=== PATIENT | female | born 1975 | race Caucasian/White ===

== ENCOUNTER 2017-10-13 07:44 | Emergency (ER) | payer BC, OTHER ==
[2017-10-13 08:07] VITALS: BP 125/88
--- NOTE | 2017-10-13 08:55 | UC ---
Respiratory Complaint HPI - HPI Summary HPI Summary: 42 F with cough. pruritic rash on bilat arms, scratchy throat. cold sx, states she has "mucous". Per pt (+) exposure to both flu and strep. No fever. Not . Not immunocompromised. mild scratchy throat. no SOB. No n/v/d [ End ] - History of Current Complaint Chief Complaint: UCGeneralIllness Stated Complaint: ST/COUGH Time Seen by Provider: 10/13/17 08:50 Hx Obtained From: Patient Hx Last Menstrual Period: 12/26/13 Onset/Duration: Sudden Onset Timing: Constant Severity Initially: Mild Severity Currently: Mild Pain Intensity: 0 - Allergies/Home Medications Allergies/Adverse Reactions: Allergies Allergy/AdvReac Type Severity Reaction Status Date / Time MS Carisoprodol [From Soma] Allergy Hives Verified 10/13/17 08:07 MS Clarithromycin Allergy Hives Verified 10/13/17 08:07 [From Biaxin] MS Escitalopram Allergy Hives Verified 10/13/17 08:07 [From Lexapro] PMH/Surg Hx/FS Hx/Imm Hx Previously Healthy: Yes - Surgical History Surgical History: Yes Surgery Procedure, Year, and Place: hysterectomy - Family History Known Family History: Positive: None - Social History Occupation: Employed Full-time - kindergarten Alcohol Use: None Substance Use Type: None Smoking Status (MU): Never Smoked Tobacco - Immunization History Most Recent Tetanus Shot: unknown Review of Systems Constitutional: Fatigue ENT: Sore Throat, Nasal Discharge, Sinus Congestion Respiratory: Cough Is Patient Immunocompromised?: No All Other Systems Reviewed And Are Negative: Yes Physical Exam Triage Information Reviewed: Yes Appearance: Well-Appearing, No Pain Distress, Well-Nourished Vital Signs: Initial Vital Signs Temp 98.8 F 10/13/17 08:02 Pulse 87 10/13/17 08:02 Resp 18 10/13/17 08:02 BP 125/88 10/13/17 08:02 Pulse Ox 99 10/13/17 08:02 Vital Signs Reviewed: Yes Eye Exam: Normal ENT Exam: Normal Dental Exam: Normal Neck exam: Normal Neck: Positive: 1 Respiratory Exam: Normal Cardiovascular Exam: Normal Musculoskeletal Exam: Normal Neurological Exam: Normal Psychological Exam: Normal Skin Exam: Normal UC Diagnostic Evaluation - Laboratory O2 Sat by Pulse Oximetry: 99 Respiratory Course/Dx - Course Course Of Treatment: Viral -- supportive care -- RTO if any concerns - Differential Dx/Diagnosis Differential Diagnosis/HQI/PQRI: Bronchitis, Influenza, Laryngitis, Lower Resp Infection Provider Diagnoses: URI Discharge - Discharge Plan Condition: Good Disposition: HOME Patient Education Materials: Upper Respiratory Infection (ED) Referrals: CHELLE Cobb [Primary Care Provider] - 4 Days
== END 2017-10-13 09:06 | disposition home or self-care (01) ==
LOC: UCCORT 07:44
DX: J06.9 Acute upper respiratory infection, unspecified (principal)
CPT/HCPCS: 99201; G0463